=== PATIENT | male | born 1985 | race Caucasian/White ===

== ENCOUNTER 2017-09-21 21:46 | Emergency (ER) | payer SELFPAY, MEDICAID ==
[2017-09-22] MEDS: METHYLPREDNISOLONE 125 MG INJ IM (04:16)
[2017-09-22] MEDS: ALBUTEROL 0.083% (NEB) 2.5 MG/3 ML AMP NEB (04:20)
[2017-09-22] MEDS: IPRATROPIUM (NEB) 0.5 MG/2.5 ML AMP NEB (04:20)
== END 2017-09-22 05:35 | disposition home or self-care (01) ==
LOC: FTE 21:46
DX: J20.9 Acute bronchitis, unspecified (principal); J45.901 Unspecified asthma with (acute) exacerbation; F17.210 Nicotine dependence, cigarettes, uncomplicated
CPT/HCPCS: 71045; 94664; 96372; 99284-25